=== PATIENT | male | born 1965 | race Caucasian/White ===

== ENCOUNTER 2017-03-01 11:50 | Inpatient (IN) | payer OTHER ==
[2017-03-01 14:37] VITALS: BMI 21.2
--- NOTE | 2017-03-01 17:10 | HP ---
CIWA Score - CIWA Score Nausea/Vomitin-Mild Nausea/No Vomiting Muscle Tremors: 4-Moderate,w/Arms Extend Anxiety: 3 Agitation: 4-Moderately Restless Paroxysmal Sweats: 1-Minimal Palms Moist Orientation: 1-Uncertain about Date Tacttile Disturbances: 0-None Auditory Disturbances: 0-None Visual Disturbances: 0-None Headache: 1-Very Mild CIWA-Ar Total Score: 15 Admission ROS [facility] - HPI Chief Complaint: withdrawal sx Allergies/Adverse Reactions: Allergies Allergy/AdvReac Type Severity Reaction Status Date / Time No Known Allergies Allergy Verified 03/01/17 15:07 History of Present Illness: 51 years old male with long history of alcohol marijuana nicotine dependence has hiv hypertension on methadone 70 mg daily and depression is admitted to detox Exam Limitations: No Limitations - Ebola screening Have you traveled outside of the country in the last 21 days: No Have you had contact with anyone from an Ebola affected area: No Have you been sick,other than usual withdrawal symptoms: No Do you have a fever: No - Review of Systems Constitutional: Loss of Appetite, Changes in sleep, Unintentional Wgt. Loss EENT: reports: Hearing Loss (right ear) Respiratory: reports: SOB with Exertion, Productive cough (white) Cardiac: reports: No Symptoms Reported GI: reports: Nausea, Poor Appetite, Poor Fluid Intake, Indigestion, Abdominal cramping : reports: No Symptoms Reported Musculoskeletal: reports: No Symptoms Reported Integumentary: reports: Rash (since 1997) Neuro: reports: Tremors Endocrine: reports: No Symptoms Reported Hematology: reports: No Symptoms Reported Psychiatric: reports: Judgement Intact Other Systems: Reviewed and Negative Patient History - Patient Medical History Hx Anemia: No Hx Asthma: No Hx Chronic Obstructive Pulmonary Disease (COPD): No Hx Cancer: No Hx Cardiac Disorders: No Hx Congestive Heart Failure: No Hx Hypertension: Yes (non compliant with meds.) Hx Hypercholesterolemia: No Hx Pacemaker: No HX Cerebrovascular Accident: No Hx Seizures: No Hx Dementia: No Hx Diabetes: No Hx Gastrointestinal Disorders: Yes Hx Liver Disease: No Hx Genitourinary Disorders: No Hx Sexually Transmitted Disorders: No Hx Renal Disease (ESRD): No Hx Thyroid Disease: No Hx Human Immunodeficiency Virus (HIV): Yes (1983) Hx Hepatitis C: No Hx Depression: Yes Hx Suicide Attempt: No Hx Bipolar Disorder: No Hx Schizophrenia: No - Patient Surgical History Past Surgical History: No - PPD History Previous Implant?: Yes Documented Results: Negative w/o proof Implanted On Prior [facility] Admission?: No PPD to be Administered?: Yes - Smoking Cessation Smoking history: Current every day smoker Have you smoked in the past 12 months: Yes Aproximately how many cigarettes per day: 20 Hx Chewing Tobacco Use: No Initiated information on smoking cessation: Yes 'Breaking Loose' booklet given: 03/01/17 - Substance & Tx. History Hx Alcohol Use: Yes Hx Substance Use: Yes Substance Use Type: Alcohol, Marijuana Hx Substance Use Treatment: Yes (2013) - Substances Abused Alcohol Route: Oral Frequency: Daily Amount used: 10 beers Age of first use: 17 Date of Last Use: 03/01/17 Marijuana/Hashish Route: Smoking Frequency: Daily Amount used: 1 bag Age of first use: 17 Date of Last Use: 02/28/17 Family Disease History - Family Disease History Family Disease History: Diabetes: Father, Heart Disease: Mother, Other: Father Admission Physical Exam S - Vital Signs Vital Signs: Vital Signs - 24 hr 03/01/17 14:35 Temperature 97.3 F L Pulse Rate 89 Respiratory 20 Rate Blood Pressure 142/88 - Physical General Appearance: Yes: Within Normal Limits, Mild Distress, Alcohol on Breath , Tremorous, Irritable, Sweating, Anxious HEENTM: Yes: Hearing grossly Normal, Normal ENT Inspection, Normocephalic, Normal Voice Respiratory: Yes: Chest Non-Tender, No Respiratory Distress, No Accessory Muscle Use, Wheezing Neck: Yes: Supple, Trachea in good position Breast: Yes: Breasts Symetrical Cardiology: Yes: Regular Rhythm, Regular Rate, S1, S2 Abdominal: Yes: Normal Bowel Sounds, Non Tender, Soft Genitourinary: Yes: Within Normal Limits Back: Yes: Normal Inspection Musculoskeletal: Yes: full range of Motion, Gait Steady Neurological: Yes: Alert, Motor Strength 5/5, Normal Response, Depressed Affect Integumentary: Yes: Warm Lymphatic: Yes: Within Normal Limits - Diagnostic (1) Alcohol dependence with uncomplicated withdrawal Current Visit: Yes Status: Acute (2) Methadone maintenance therapy patient Current Visit: Yes Status: Chronic Comment: 70 mg verification pending (3) Cannabis dependence, uncomplicated Current Visit: Yes Status: Chronic (4) Nicotine dependence Current Visit: Yes Status: Acute Qualifiers: Nicotine product type: cigarettes Substance use status: in withdrawal Qualified Code(s): F17.213 - Nicotine dependence, cigarettes, with withdrawal (5) HIV (human immunodeficiency virus infection) Current Visit: Yes Status: Chronic Comment: no medication brought in upon admission (6) Hypertension Current Visit: Yes Status: Chronic Qualifiers: Hypertension type: essential hypertension Qualified Code(s): I10 - Essential (primary) hypertension (7) Asthma Current Visit: Yes Status: Chronic Qualifiers: Asthma severity: mild Asthma persistence: intermittent Asthma complication type: with status asthmaticus Qualified Code(s): J45.22 - Mild intermittent asthma with status asthmaticus (8) Weight loss Current Visit: Yes Status: Acute (9) GERD (gastroesophageal reflux disease) Current Visit: Yes Status: Chronic Qualifiers: Esophagitis presence: without esophagitis Qualified Code(s): K21.9 - Gastro -esophageal reflux disease without esophagitis (10) Chronic pruritic rash in adult Current Visit: Yes Status: Chronic (11) Depression (emotion) Current Visit: Yes Status: Suspected Qualifiers: Depression Type: dysthymia Qualified Code(s): F34.1 - Dysthymic disorder Cleared for Admission [facility] - Detox or Rehab [facility] Level of Care: Medically Managed Detox Regimen/Protocol: Librium [facility] Breath Alcohol Content Breath Alcohol Content: 0.208 Urine Drug Screen - Results Drug Screen Negative: No Urine Drug Screen Results: THC-Marijuana, MTD-Methadone
[2017-03-01] MEDS ORDERED: NICOTINE POLACRILEX 4 MG GUM BC PRN (17:12)
[2017-03-01] MEDS ORDERED: MAG HYDROX/AL HYDROX/SIMETH 30 ML UNIT-DOSE CUP PO PRN (17:12)
[2017-03-01] MEDS ORDERED: MAGNESIUM CITRATE 300 ML BOTTLE PO PRN (17:12)
[2017-03-01] MEDS ORDERED: chlordiazePOXIDE HCL 25 MG CAPSULE PO PRN (17:12)
[2017-03-01] MEDS ORDERED: LOPERAMIDE HCL 2 MG CAPSULE PO PRN (17:12)
[2017-03-01] MEDS ORDERED: MAGNESIUM HYDROX 2400MG/30ML ORAL SUSPENSION 30 ML CUP PO PRN (17:12)
[2017-03-01] MEDS ORDERED: ACETAMINOPHEN 325 MG TABLET (FP) PO PRN (17:12)
[2017-03-01] MEDS ORDERED: ALBUTEROL SO4 18 GM HFA INHALER IH PRN (17:15)
[2017-03-01] MEDS: HYDROCORTISONE 1% TOPICAL CREAM 30 GM TUBE TP SCH ×2 (18:34→23:48)
[2017-03-01 20:21] LABS: URINE APPEARANCE CLEAR; URINE BILIRUBIN NEGATIVE (NEGATIVE); URINE BLOOD NEGATIVE (NEGATIVE); URINE COLOR STRAW; URINE GLUCOSE (UA) NEGATIVE (NEGATIVE); URINE KETONE NEGATIVE (NEGATIVE); URINE NITRITE NEGATIVE (NEGATIVE); URINE PROTEIN NEGATIVE (NEGATIVE); URINE UROBILINOGEN NEGATIVE mg/dL (0.2-1.0)
[2017-03-01] MEDS ORDERED: BACLOFEN 10 MG TABLET (FP) PO ONE (21:18)
--- NOTE | 2017-03-01 22:19 | PN ---
[facility] Progress Note Note: received nurse call that the patient has chest pain normal ekg observed patient holding his chest c/o 10/10 burning shooting pain radiate to left arm and jaw and back, ambulance was called information provided to er may return continue alcohol detox
[2017-03-01 23:07] LABS: URINE LEUK ESTERASE Negative (NEGATIVE)
[2017-03-01] MEDS: THIAMINE HCL 100 MG TABLET (FP) PO SCH (23:47)
[2017-03-01] MEDS: RANITIDINE HCL 150 MG TABLET (FP) PO SCH (23:48)
[2017-03-01] MEDS: chlordiazePOXIDE HCL 25 MG CAPSULE PO SCH (23:49)
[2017-03-02] MEDS: chlordiazePOXIDE HCL 25 MG CAPSULE PO SCH ×4 (05:30→22:11)
[2017-03-02 10:06] LABS: HEMATOCRIT 45.6 % (35.4-49); MCH 31.5 pg (25.7-33.7); MCHC 32.9 g/dl (32.0-35.9); MEAN CELL VOLUME 95.6 fl (80-96); MEAN PLT VOLUME 11.1 fl (7.5-11.1); PLATELET COUNT 124 K/MM3 (134-434); RBC 4.77 M/mm3 (4.00-5.60); RDW 13.5 % (11.9-15.9); WHITE BLOOD COUNT 8.3 K/mm3 (4.0-10.0)
[2017-03-02 10:17] LABS: CHLORIDE 97 mmol/L (98-107); POTASSIUM 4.2 mmol/L (3.5-5.1); SODIUM 134 mmol/L (136-145)
[2017-03-02 10:26] LABS: ALBUMIN 3.8 g/dl (3.4-5.0); ALK PHOS 246 U/L (45-117); ANION GAP 9 (8-16); BILIRUBIN,TOTAL 0.6 mg/dL (0.2-1.0); BLOOD UREA NITROGEN 3 mg/dL (7-18); CO2 28 mmol/L (21-32); CREATININE 0.7 mg/dL (0.7-1.3); GLUCOSE,RANDOM 126 mg/dL (74-106); SGOT/AST 121 U/L (15-37); SGPT/ALT 86 U/L (12-78); TOT PROT 8.7 g/dl (6.4-8.2)
[2017-03-02] MEDS ORDERED: NITROGLYCERIN SUBLINGUAL 1/150 0.4 MG TAB SL PRN (11:26)
[2017-03-02] MEDS ORDERED: METHADONE HCL 10 MG TABLET PO ONE (11:27)
[2017-03-02] MEDS ORDERED: METHADONE HCL 10 MG TABLET ONE (11:41)
[2017-03-02] MEDS ORDERED: METHADONE HCL 40 MG DISPERSABLE TABLET ONE (11:41)
[2017-03-02] MEDS ORDERED: METHADONE 40 MG, METHADONE 30 MG PO ONE (11:45)
[2017-03-02] MEDS: amLODIPine BESYLATE 10 MG TABLET (FP) PO SCH (11:46)
[2017-03-02] MEDS: RANITIDINE HCL 150 MG TABLET (FP) PO SCH ×2 (11:46→22:11)
[2017-03-02] MEDS: PRENATAL VITAMINS W/ FOLIC ACID TABLET (FP) PO SCH (11:46)
--- NOTE | 2017-03-02 11:46 | PN ---
S CIWA - CIWA Score Nausea/Vomitin-No Nausea/No Vomiting Muscle Tremors: 4-Moderate,w/Arms Extend Anxiety: 3 Agitation: 3 Paroxysmal Sweats: 3 Orientation: 0-Oriented Tacttile Disturbances: 0-None Auditory Disturbances: 0-None Visual Disturbances: 0-None Headache: 0-None Present CIWA-Ar Total Score: 13 [facility] Progress Note (SOAP) Subjective: sweats shakes restless agitation Objective: 03/02/17 11:43 Vital Signs Temperature 98.4 F 03/02/17 11:30 Pulse Rate 86 03/02/17 11:30 Respiratory Rate 18 03/02/17 11:30 Blood Pressure 155/94 03/02/17 11:30 O2 Sat by Pulse Oximetry (%) Laboratory Tests 03/01/17 03/02/17 03/02/17 19:40 06:00 06:00 WBC 8.3 RBC 4.77 Hgb 15.0 Hct 45.6 MCV 95.6 MCH 31.5 MCHC 32.9 RDW 13.5 Plt Count 124 L MPV 11.1 D Sodium 134 L Potassium 4.2 Chloride 97 L Carbon Dioxide 28 Anion Gap 9 BUN 3 L D Creatinine 0.7 D Creat Clearance w eGFR > 60 Random Glucose 126 H Calcium 9.0 Total Bilirubin 0.6 AST 121 H ALT 86 H Alkaline Phosphatase 246 H Total Protein 8.7 H Albumin 3.8 Urine Color Straw Urine Appearance Clear Urine pH 7.0 Ur Specific [place] 1.002 Urine Protein Negative Urine Glucose (UA) Negative Urine Ketones Negative Urine Blood Negative Urine Nitrite Negative Urine Bilirubin Negative Urine Urobilinogen Negative Ur Leukocyte Esterase Negative aaox3 ambulating no acute distress pt arrived of from ED; denies any shortness of breath denies no chest pain at this time. Assessment: 03/02/17 11:45 withdrawal sx Plan: continue detox increase fluids nitro SL ordered prn motrin prn
[2017-03-02] MEDS: HYDROCORTISONE 1% TOPICAL CREAM 30 GM TUBE TP SCH ×4 (11:48→22:11)
[2017-03-02] MEDS: NICOTINE 21 MG/24 HOURS TOPICAL PATCH TD SCH (11:53)
[2017-03-02] MEDS ORDERED: PNEUMOC 13-VAL CONJ-DIP CRM/PF 0.5 ML DISP.SYRIN IM ONE (12:00)
[2017-03-02] MEDS ORDERED: FLU VACCINE QUAD 60 MCG/0.5 ML (MDV 17-18) IM ONE (12:00)
[2017-03-02] MEDS: P-EPHED 60MG/TRIPROLIDI 2.5MG TABLET PO PRN (12:50)
[2017-03-02] MEDS: MENTHOL/PHENOL 1 EACH UD MM PRN (12:50)
[2017-03-02] MEDS: guaiFENesin/D-METHORPHAN HB 10 ML UNIT-DOSE CUPS PO PRN (12:50)
--- NOTE | 2017-03-02 14:33 | PN ---
[facility] Progress Note Note: Pt. seen bedside by creative services writer . Pt. refused to be seen by Psychiatric Nurse Practitioner. Pt. approached bedside by Dr. Naidu for a psychiatric consultation. Pt. again refused to be seen by psychiatrist.
[2017-03-02] MEDS ORDERED: SIMETHICONE 80 MG TAB.CHEW (FP) PO PRN (16:03)
[2017-03-02] MEDS: THIAMINE HCL 100 MG TABLET (FP) PO SCH (22:11)
[2017-03-03] MEDS ORDERED: METHADONE HCL 10 MG TABLET ONE (04:33)
[2017-03-03] MEDS ORDERED: METHADONE HCL 40 MG DISPERSABLE TABLET ONE (04:33)
[2017-03-03] MEDS: chlordiazePOXIDE HCL 25 MG CAPSULE PO SCH ×3 (05:39→18:06)
[2017-03-03] MEDS: METHADONE 40 MG, METHADONE 30 MG PO SCH (05:40)
[2017-03-03] MEDS ORDERED: METHADONE HCL 40 MG DISPERSABLE TABLET PO SCH (06:00)
--- NOTE | 2017-03-03 08:01 | EKG ---
Test Reason : Blood Pressure : / mmHG Vent. Rate : 077 BPM Atrial Rate : 077 BPM P-R Int : 144 ms QRS Dur : 080 ms QT Int : 382 ms P-R-T Axes : 088 050 056 degrees QTc Int : 432 ms NORMAL SINUS RHYTHM NORMAL ECG NO PREVIOUS ECGS AVAILABLE Confirmed by MD Hankins Daniel ([id number]) on 03/02/2017 3:04:35 PM Also confirmed by MD Hankins Daniel ([id number]), communications editor TOMMY ZAFAR ([id number]) on 03/03/2017 8:01:23 AM Referred By: Macie Horowitz Confirmed By:Tommy Hankins MD
[2017-03-03] MEDS: RANITIDINE HCL 150 MG TABLET (FP) PO SCH ×2 (10:26→22:11)
[2017-03-03] MEDS: amLODIPine BESYLATE 10 MG TABLET (FP) PO SCH (10:27)
[2017-03-03] MEDS: PRENATAL VITAMINS W/ FOLIC ACID TABLET (FP) PO SCH (10:27)
[2017-03-03] MEDS: HYDROCORTISONE 1% TOPICAL CREAM 30 GM TUBE TP SCH ×4 (10:27→22:14)
[2017-03-03] MEDS: NICOTINE 21 MG/24 HOURS TOPICAL PATCH TD SCH (10:27)
[2017-03-03] MEDS: P-EPHED 60MG/TRIPROLIDI 2.5MG TABLET PO PRN (10:30)
--- NOTE | 2017-03-03 17:47 | PN ---
[facility] CIWA - CIWA Score Nausea/Vomitin Muscle Tremors: 3 Anxiety: 3 Agitation: 3 Paroxysmal Sweats: 3 Orientation: 0-Oriented Tacttile Disturbances: 1-Very Mild Itch/Numbness Auditory Disturbances: 0-None Visual Disturbances: 0-None Headache: 1-Very Mild CIWA-Ar Total Score: 17 [facility] Progress Note (SOAP) Subjective: nausea, sweats, interrupted sleep, anxiety, tremors Objective: 03/03/17 17:46 Vital Signs - 24 hr 03/02/17 03/03/17 03/03/17 22:56 00:30 03:30 Temperature 97.9 F Pulse Rate 75 Respiratory 18 18 18 Rate Blood Pressure 146/106 03/03/17 03/03/17 03/03/17 06:18 10:09 15:19 Temperature 97.9 F 98.6 F 98.1 F Pulse Rate 69 78 85 Respiratory 18 18 20 Rate Blood Pressure 127/72 115/78 140/89 Laboratory Tests 03/01/17 03/02/17 03/02/17 19:40 06:00 06:00 WBC 8.3 RBC 4.77 Hgb 15.0 Hct 45.6 MCV 95.6 MCH 31.5 MCHC 32.9 RDW 13.5 Plt Count 124 L MPV 11.1 D Sodium 134 L Potassium 4.2 Chloride 97 L Carbon Dioxide 28 Anion Gap 9 BUN 3 L D Creatinine 0.7 D Creat Clearance w eGFR > 60 Random Glucose 126 H Calcium 9.0 Total Bilirubin 0.6 AST 121 H ALT 86 H Alkaline Phosphatase 246 H Total Protein 8.7 H Albumin 3.8 Urine Color Straw Urine Appearance Clear Urine pH 7.0 Ur Specific [place] 1.002 Urine Protein Negative Urine Glucose (UA) Negative Urine Ketones Negative Urine Blood Negative Urine Nitrite Negative Urine Bilirubin Negative Urine Urobilinogen Negative Ur Leukocyte Esterase Negative RPR Titer 03/02/17 06:00 WBC RBC Hgb Hct MCV MCH MCHC RDW Plt Count MPV Sodium Potassium Chloride Carbon Dioxide Anion Gap BUN Creatinine Creat Clearance w eGFR Random Glucose Calcium Total Bilirubin AST ALT Alkaline Phosphatase Total Protein Albumin Urine Color Urine Appearance Urine pH Ur Specific [place] Urine Protein Urine Glucose (UA) Urine Ketones Urine Blood Urine Nitrite Urine Bilirubin Urine Urobilinogen Ur Leukocyte Esterase RPR Titer Nonreactive Assessment: 03/03/17 17:47 withdrwal sx, cont detox, fluids, encourage ambulation
[2017-03-03] MEDS: THIAMINE HCL 100 MG TABLET (FP) PO SCH (22:11)
[2017-03-03] MEDS: chlordiazePOXIDE 5 MG CAPSULE PO SCH (22:12)
[2017-03-04] MEDS: MENTHOL/PHENOL 1 EACH UD MM PRN (02:40)
[2017-03-04] MEDS ORDERED: METHADONE HCL 40 MG DISPERSABLE TABLET ONE (04:51)
[2017-03-04] MEDS ORDERED: METHADONE HCL 10 MG TABLET ONE (04:51)
[2017-03-04] MEDS: chlordiazePOXIDE 5 MG CAPSULE PO SCH ×3 (05:13→17:28)
[2017-03-04] MEDS: METHADONE 40 MG, METHADONE 30 MG PO SCH (05:13)
[2017-03-04] MEDS: RANITIDINE HCL 150 MG TABLET (FP) PO SCH ×2 (10:56→22:22)
[2017-03-04] MEDS: PRENATAL VITAMINS W/ FOLIC ACID TABLET (FP) PO SCH (10:56)
[2017-03-04] MEDS: HYDROCORTISONE 1% TOPICAL CREAM 30 GM TUBE TP SCH ×4 (10:56→22:22)
[2017-03-04] MEDS: NICOTINE 21 MG/24 HOURS TOPICAL PATCH TD SCH (10:57)
[2017-03-04] MEDS: amLODIPine BESYLATE 10 MG TABLET (FP) PO SCH (10:57)
[2017-03-04] MEDS ORDERED: amLODIPine BESYLATE 5 MG TABLET (FP) PO SCH (11:00)
[2017-03-04] MEDS ORDERED: FLU VACCINE QUAD 60 MCG/0.5 ML (MDV 17-18) IM ONE (12:00)
[2017-03-04] MEDS: guaiFENesin/D-METHORPHAN HB 10 ML UNIT-DOSE CUPS PO PRN (13:24)
--- NOTE | 2017-03-04 15:21 | PN ---
[facility] Progress Note (SOAP) Subjective: body aches, constipation, night sweats, tremors, anxiety Objective: 03/04/17 15:20 Vital Signs Temperature 100.0 F H 03/04/17 13:20 Pulse Rate 78 03/04/17 13:20 Respiratory Rate 18 03/04/17 13:20 Blood Pressure 116/72 03/04/17 13:20 O2 Sat by Pulse Oximetry (%) Laboratory Last Values WBC 8.3 K/mm3 (4.0-10.0) 03/02/17 06:00 RBC 4.77 M/mm3 (4.00-5.60) 03/02/17 06:00 Hgb 15.0 GM/dL (11.7-16.9) 03/02/17 06:00 Hct 45.6 % (35.4-49) 03/02/17 06:00 MCV 95.6 fl (80-96) 03/02/17 06:00 MCH 31.5 pg (25.7-33.7) 03/02/17 06:00 MCHC 32.9 g/dl (32.0-35.9) 03/02/17 06:00 RDW 13.5 % (11.9-15.9) 03/02/17 06:00 Plt Count 124 K/MM3 (134-434) L 03/02/17 06:00 MPV 11.1 fl (7.5-11.1) D 03/02/17 06:00 Sodium 134 mmol/L (136-145) L 03/02/17 06:00 Potassium 4.2 mmol/L (3.5-5.1) 03/02/17 06:00 Chloride 97 mmol/L (98-107) L 03/02/17 06:00 Carbon Dioxide 28 mmol/L (21-32) 03/02/17 06:00 Anion Gap 9 (8-16) 03/02/17 06:00 BUN 3 mg/dL (7-18) L D 03/02/17 06:00 Creatinine 0.7 mg/dL (0.7-1.3) D 03/02/17 06:00 Creat Clearance w eGFR > 60 (>60) 03/02/17 06:00 Random Glucose 126 mg/dL (74-106) H 03/02/17 06:00 Calcium 9.0 mg/dL (8.5-10.1) 03/02/17 06:00 Total Bilirubin 0.6 mg/dL (0.2-1.0) 03/02/17 06:00 AST 121 U/L (15-37) H 03/02/17 06:00 ALT 86 U/L (12-78) H 03/02/17 06:00 Alkaline Phosphatase 246 U/L (45-117) H 03/02/17 06:00 Total Protein 8.7 g/dl (6.4-8.2) H 03/02/17 06:00 Albumin 3.8 g/dl (3.4-5.0) 03/02/17 06:00 Urine Color Straw 03/01/17 19:40 Urine Appearance Clear 03/01/17 19:40 Urine pH 7.0 (5.0-8.0) 03/01/17 19:40 Ur Specific [place] 1.002 (1.001-1.035) 03/01/17 19:40 Urine Protein Negative (NEGATIVE) 03/01/17 19:40 Urine Glucose (UA) Negative (NEGATIVE) 03/01/17 19:40 Urine Ketones Negative (NEGATIVE) 03/01/17 19:40 Urine Blood Negative (NEGATIVE) 03/01/17 19:40 Urine Nitrite Negative (NEGATIVE) 03/01/17 19:40 Urine Bilirubin Negative (NEGATIVE) 03/01/17 19:40 Urine Urobilinogen Negative mg/dL (0.2-1.0) 03/01/17 19:40 Ur Leukocyte Esterase Negative (NEGATIVE) 03/01/17 19:40 RPR Titer Nonreactive (NONREACTIVE) 03/02/17 06:00 Labs reviewed, multiple comorbidities Assessment: 03/04/17 15:23 Withdrawal symptoms Plan: Continue detox
[2017-03-04] MEDS: ELVITEG/COB/EMTRI/TENOF (GENVOYA) TABLET (NF) PO SCH (18:23)
[2017-03-04] MEDS: chlordiazePOXIDE HCL 10 MG CAPSULE PO SCH (22:22)
[2017-03-04] MEDS: THIAMINE HCL 100 MG TABLET (FP) PO SCH (22:22)
[2017-03-05] MEDS ORDERED: METHADONE HCL 40 MG DISPERSABLE TABLET ONE (05:11)
[2017-03-05] MEDS ORDERED: METHADONE HCL 10 MG TABLET ONE (05:11)
[2017-03-05] MEDS: METHADONE 40 MG, METHADONE 30 MG PO SCH (06:08)
[2017-03-05] MEDS: chlordiazePOXIDE HCL 10 MG CAPSULE PO SCH (06:09)
[2017-03-05 06:17] VITALS: BP 131/90; PULSE 72; TEMP 98.1
[2017-03-05] MEDS: ELVITEG/COB/EMTRI/TENOF (GENVOYA) TABLET (NF) PO SCH (07:39)
--- NOTE | 2017-03-05 12:02 | DS ---
[facility] Detox Discharge Summary Admission Date: 03/01/17 Discharge Date: 03/05/17 - History Present History: Alcohol Dependence, MMTP Pertinent Past History: HIV infection Asthma - Physical Exam Results Vital Signs: Vital Signs Temperature 98.1 F 03/05/17 06:00 Pulse Rate 72 03/05/17 06:00 Respiratory Rate 16 03/05/17 06:00 Blood Pressure 131/90 03/05/17 06:00 O2 Sat by Pulse Oximetry (%) Pertinent Admission Physical Exam Findings: Withdrawal sx. Laboratory Tests 03/01/17 03/02/17 03/02/17 19:40 06:00 06:00 WBC 8.3 RBC 4.77 Hgb 15.0 Hct 45.6 MCV 95.6 MCH 31.5 MCHC 32.9 RDW 13.5 Plt Count 124 L MPV 11.1 D Sodium 134 L Potassium 4.2 Chloride 97 L Carbon Dioxide 28 Anion Gap 9 BUN 3 L D Creatinine 0.7 D Creat Clearance w eGFR > 60 Random Glucose 126 H Calcium 9.0 Total Bilirubin 0.6 AST 121 H ALT 86 H Alkaline Phosphatase 246 H Total Protein 8.7 H Albumin 3.8 Urine Color Straw Urine Appearance Clear Urine pH 7.0 Ur Specific [place] 1.002 Urine Protein Negative Urine Glucose (UA) Negative Urine Ketones Negative Urine Blood Negative Urine Nitrite Negative Urine Bilirubin Negative Urine Urobilinogen Negative Ur Leukocyte Esterase Negative RPR Titer 03/02/17 06:00 WBC RBC Hgb Hct MCV MCH MCHC RDW Plt Count MPV Sodium Potassium Chloride Carbon Dioxide Anion Gap BUN Creatinine Creat Clearance w eGFR Random Glucose Calcium Total Bilirubin AST ALT Alkaline Phosphatase Total Protein Albumin Urine Color Urine Appearance Urine pH Ur Specific [place] Urine Protein Urine Glucose (UA) Urine Ketones Urine Blood Urine Nitrite Urine Bilirubin Urine Urobilinogen Ur Leukocyte Esterase RPR Titer Nonreactive labs noted - Treatment Hospital Course: Detox Protocol Followed, Detoxed Safely, Responded well, Discharged Condition Good Patient has Accepted a Rehab Referral to: refused after care,however pt. was given [facility]' address & tel # - Medication Discharge Medications: Ambulatory Orders Amlodipine Besylate [Norvasc -] 10 mg PO DAILY 03/01/17 Elviteg/Cob/Emtri/Tenof Alafen [Genvoya (Non-Formulary)] 1 each PO DAILY - Diagnosis (1) Alcohol dependence with uncomplicated withdrawal Status: Acute (2) Asthma Status: Acute Qualifiers: Asthma severity: mild Asthma persistence: intermittent Asthma complication type: with status asthmaticus Qualified Code(s): J45.22 - Mild intermittent asthma with status asthmaticus (3) Cannabis dependence, uncomplicated Status: Acute (4) GERD (gastroesophageal reflux disease) Status: Acute Qualifiers: Esophagitis presence: without esophagitis Qualified Code(s): K21.9 - Gastro -esophageal reflux disease without esophagitis (5) HIV (human immunodeficiency virus infection) Status: Acute (6) Hypertension Status: Acute Qualifiers: Hypertension type: essential hypertension Qualified Code(s): I10 - Essential (primary) hypertension - AMA Did Patient Leave Against Medical Advice: No
== END 2017-03-05 09:30 | disposition home or self-care (01) | DRG 773 ==
LOC: YASAS 11:50 → Y6N 15:41
PROVIDERS: ADMIT Internal Medicine; ATTEND Internal Medicine
PROC: HZ2ZZZZ Detoxification Services for Substance Abuse Treatment (ICD-10-PCS; principal; 2017-03-01)
DX: F11.20 Opioid dependence, uncomplicated (principal); F10.230 Alcohol dependence with withdrawal, uncomplicated; F12.20 Cannabis dependence, uncomplicated; F17.210 Nicotine dependence, cigarettes, uncomplicated; F34.1 Dysthymic disorder; I10 Essential (primary) hypertension; J45.20 Mild intermittent asthma, uncomplicated; Z21 Asymptomatic human immunodeficiency virus [HIV] infection status; L29.8 Other pruritus; R63.4 Abnormal weight loss; Z68.21 Body mass index [BMI] 21.0-21.9, adult
CPT/HCPCS: 36415; 80053; 81003; 85027; 86593; 90688; 93005; 93010; G0008; J0475

== ENCOUNTER 2017-03-01 22:07 | Emergency (ER) | payer OTHER ==
[2017-03-01] MEDS ORDERED: ASPIRIN 81 MG CHEWABLE TABLETS PO ONE (22:17)
[2017-03-01 22:24] VITALS: BMI 25.1
--- NOTE | 2017-03-01 23:52 | PDOC ---
History of Present Illness - General Chief Complaint: Chest Pain Stated Complaint: CHEST PAIN Time Seen by Provider: 03/01/17 22:16 - History of Present Illness Initial Comments: 03/02/17 00:26 CHIEF COMPLAINT: chest discomfort HISTORY OF PRESENT ILLNESS: 51 yo M with hx of HIV, HTN, substance abuse sent in from [facility] with complaints of chest pain per [facility] notes. On interview, patient c/o feeling "mucus in my chest" x "months" and cough x "2-3 years." Patient reports vomiting "in the mornings" and states that he has "sweats and chills sometimes." Patient reports last T-cell count was in March but is unsure what the result was. Patient states he saw a primary care doctor "like a month ago" and received a 5 day course of antibiotics but "it didn't help at all." PAST MEDICAL HISTORY: as per HPI FAMILY HISTORY: Denies SOCIAL HISTORY: Alcohol SURGICAL HISTORY: Denies ALLERGIES: No known drug allergies REVIEW OF SYSTEMS General/Constitutional: Chills, nightsweats. Denies weakness, weight change. HEENT: Denies change in vision. Denies ear pain or discharge. Denies sore throat. Cardiovascular: Denies chest pain or shortness of breath. Respiratory: Chronic cough. Gastrointestinal: Vomiting in the mornings. Genitourinary: Denies dysuria, frequency, or change in urination. Musculoskeletal: Denies joint or muscle swelling or pain. Denies neck or back pain. Neurologic: Denies headache. PHYSICAL EXAM General Appearance: Well-appearing, appropriately dressed. No apparent distress. HEENT: EOMI, PERRLA. No conjunctival pallor. No photophobia, scleral icterus. Neck: Supple. Trachea midline. No tenderness, rigidity, carotid bruit, stridor , lymphadenopathy, or thyromegaly. Respiratory/Chest: Hyperresonant breath sounds b/l. No shortness of breath, chest tenderness, respiratory distress, accessory muscle use. No crackles, rales , rhonchi, stridor, wheezing, dullness Cardiovascular: RRR. S1, S2. Gastrointestinal/Abdominal: Normal bowel sounds. Abdomen soft, non-distended. No tenderness or rebound tenderness. No organomegaly, pulsatile mass, guarding , hernia, hepatomegaly, splenomegaly. Musculoskeletal/Extremities: Normal inspection. FROM of all extremities, normal capillary refill. Pelvis Stable. No CVA tenderness. No tenderness to extremities, pedal edema, swelling, erythema or deformity. Integumentary: Appropriate color, dry, warm. No cyanosis, erythema, jaundice or rash Neurologic: dairy feed sales consultant II-XII intact. Fully oriented, alert. Appropriate mood/affect. Motor strength 5/5. No appreciable EOM palsy, facial droop or sensory deficit. Past History - Past Medical History Allergies/Adverse Reactions: Allergies Allergy/AdvReac Type Severity Reaction Status Date / Time No Known Allergies Allergy Verified 03/01/17 22:20 Home Medications: Ambulatory Orders Amlodipine Besylate [Norvasc -] 10 mg PO DAILY 03/01/17 Elviteg/Cob/Emtri/Tenof Alafen [Genvoya (Non-Formulary)] 1 each PO DAILY Anemia: No Asthma: No Cancer: No Cardiac Disorders: No CVA: No COPD: No CHF: No Dementia: No Diabetes: No GI Disorders: Yes Disorders: No HTN: Yes (non compliant with meds.) Hypercholesterolemia: No Kidney Stones: No Liver Disease: No Seizures: No Thyroid Disease: No - Reproductive History Testicular Surgery: No - Suicide/Smoking/Psychosocial Hx Smoking History: Current every day smoker Have you smoked in the past 12 months: Yes Number of Cigarettes Smoked Daily: 20 Information on smoking cessation initiated: No 'Breaking Loose' booklet given: 03/01/17 Hx Alcohol Use: Yes Drug/Substance Use Hx: Yes Substance Use Type: Alcohol, Marijuana Hx Substance Use Treatment: Yes (2013) *Physical Exam - Vital Signs Last Vital Signs Temp Pulse Resp BP Pulse Ox 97.8 F 84 14 145/97 97 03/01/17 22:21 03/01/17 22:21 03/01/17 22:21 03/01/17 22:21 03/01/17 22:21 ED Treatment Course - LABORATORY CBC & Chemistry Diagram: 03/02/17 00:40 03/02/17 00:40 - RADIOLOGY Radiology Studies Ordered: Category Date Time Status CHEST PA & LAT [RAD] Stat Radiology 03/01/17 22:17 Completed Medical Decision Making - Medical Decision Making 03/02/17 00:35 51 yo M with hx of HIV, HTN, substance abuse sent in from [facility] with complaints of chest pain per [facility] notes. -CBC, CMP, card profile -EKG, CXR -aspirin CXR negative. Large amounts of gas seen. Elevated LFTs, otherwise labs unremarkable. EKG NSR. Chest pain likely secondary to gas. Simethicone given. Patient reevaluated after administration of meds, states pain is better. Advised patient of signs and symptoms for return to ER; patient verbalized understanding and agrees to plan. *DC/Admit/Observation/Transfer Diagnosis at time of Disposition: Alcohol dependence with uncomplicated withdrawal, Methadone maintenance therapy patient, Cannabis dependence, uncomplicated, Gas pain, Constipation - Discharge Dispostion Disposition: CARE HOME FACILITY Condition at time of disposition: Stable Admit: No - Referrals Referrals: Scooby العراقي MD [Staff Physician] - - Patient Instructions Printed Discharge Instructions: DI for Atypical Chest Pain Additional Instructions: Please follow up with your primary care doctor this week. If you develop any fever, persistent vomiting, diarrhea, or any new or worsening symptoms, please return to the ER. - Post Discharge Activity
[2017-03-02 00:49] LABS: BASOPHIL 0.8 % (0-2.0); EOSINOPHIL 0.2 % (0-4.5); MCH 31.5 pg (25.7-33.7); MCHC 33.7 g/dl (32.0-35.9); MEAN CELL VOLUME 93.5 fl (80-96); MEAN PLT VOLUME 9.4 fl (7.5-11.1); NEUTROPHILS 80.7 % (42.8-82.8); PLATELET COUNT 130 K/MM3 (134-434); RDW 13.5 % (11.9-15.9); WHITE BLOOD COUNT 8.6 K/mm3 (4.0-10.0)
[2017-03-02 01:11] LABS: INR 0.98 (0.82-1.09); PROTHROMBIN TIME (PATIENT) 11.1 SEC (9.98-11.88)
[2017-03-02 01:25] LABS: ALBUMIN 3.5 g/dl (3.4-5.0); ANION GAP 9 (8-16); BILIRUBIN,TOTAL 0.7 mg/dL (0.2-1.0); CALCIUM 8.8 mg/dL (8.5-10.1); CO2 27 mmol/L (21-32); CREATININE 0.5 mg/dL (0.7-1.3); GLUCOSE,RANDOM 106 mg/dL (74-106); MAGNESIUM 1.9 mg/dL (1.8-2.4); SGOT/AST 109 U/L (15-37); SGPT/ALT 79 U/L (12-78)
[2017-03-02 01:29] LABS: ALK PHOS 236 U/L (45-117); CPK 163 IU/L (39-308); TROPONIN I < 0.02 ng/ml (0.00-0.05)
[2017-03-02] MEDS ORDERED: SIMETHICONE 80 MG TAB.CHEW (FP) PO ONE (01:58)
[2017-03-02 10:31] VITALS: BP 139/87; PULSE 81; TEMP 98.1
--- NOTE | 2017-03-03 07:50 | EKG ---
Test Reason : Blood Pressure : / mmHG Vent. Rate : 076 BPM Atrial Rate : 076 BPM P-R Int : 138 ms QRS Dur : 086 ms QT Int : 394 ms P-R-T Axes : 054 062 070 degrees QTc Int : 443 ms NORMAL SINUS RHYTHM NORMAL ECG WHEN COMPARED WITH ECG OF 01-MAR-2017 18:08, NO SIGNIFICANT CHANGE WAS FOUND Confirmed by Tommy Hankins ([id number]) on 03/02/2017 2:47:04 PM Also confirmed by MD Hankins Daniel ([id number]), deputy editor in chief TOMMY ZAFAR ([id number]) on 03/03/2017 7:50:15 AM Referred By: Confirmed By:Tommy Hankins MD
== END 2017-03-02 11:13 ==
LOC: JER 22:07
DX: K59.00 Constipation, unspecified (principal); F10.20 Alcohol dependence, uncomplicated; F12.20 Cannabis dependence, uncomplicated; I10 Essential (primary) hypertension; Z21 Asymptomatic human immunodeficiency virus [HIV] infection status
CPT/HCPCS: 36415; 71020-TC; 80053; 82550; 82553; 83735; 84484; 85025; 85610; 93005; 93010; 99283-25; 99284-25